=== PATIENT | female | born 1960 | race Caucasian/White ===

== ENCOUNTER 2023-01-14 09:43 | Emergency (ER) | payer MEDICAID, OTHER ==
[~2023-01-14] VITALS: Ht 152.4 cm; Wt 68.0 kg
[~2023-01-14 09:43] MED LIST: MOTRIN
[2023-01-14 09:45] VITALS: BP_SYST 118; PULSE 69; RESP 18; TEMP 97.4; O2SAT 95
[2023-01-14] MEDS ORDERED: KETOROLAC TROMETHAMINE 30 MG VIAL IM ONE (10:15)
[2023-01-14] MEDS ORDERED: ACETAMINOPHEN 500 MG TABLET PO ONE (11:15)
[2023-01-14] MEDS ORDERED: HYDR-3917 PO (12:23)
[2023-01-14 12:37] VITALS: BP_SYST 118; PULSE 69; RESP 18; TEMP 97.4; O2SAT 95
== END 2023-01-14 12:34 | disposition home or self-care (01) ==
LOC: SED 09:43
DX: M25.561 Pain in right knee (principal); M25.562 Pain in left knee; I10 Essential (primary) hypertension; Z79.899 Other long term (current) drug therapy; W01.0XXA Fall on same level from slipping, tripping and stumbling without subsequent striking against object, initial encounter; Y93.89 Activity, other specified; Y92.89 Other specified places as the place of occurrence of the external cause; Y99.8 Other external cause status
CPT/HCPCS: 99283; 73564; 96372; J1885